=== PATIENT | female | born 1995 | race Caucasian/White ===

== ENCOUNTER 2021-05-26 22:03 | Emergency (ER) | payer BC, OTHER ==
[~2021-05-26] VITALS: Ht 160 cm; Wt 57.2 kg
[2021-05-26] MEDS ORDERED: KETOROLAC 30 MG/1 ML ONE (22:28)
[2021-05-26] MEDS ORDERED: KETOROLAC 30 MG/1 ML IM ONE (22:30)
[2021-05-26 22:44] LABS: MEAN CORPUSCULAR HEMOGLOBIN 31.4 pg (27.0-34.8); MEAN CORPUSCULAR HGB CONC 34.7 g/dL (32.4-35.8); MEAN PLATELET VOLUME 8.1 fL (7.4-10.4); PLATELET COUNT 231 x10^3/uL (130-400); RED BLOOD COUNT 4.16 x10^6/uL (3.82-5.3); RED CELL DISTRIBUTION WIDTH 12.8 % (9.6-15.2)
[2021-05-26 22:54] LABS: ANION GAP 9 mmol/L (5-15); CALCIUM 9.1 mg/dL (8.5-10.1); CHLORIDE 104 mmol/L (98-107); CREATININE 0.85 mg/dL (0.55-1.02)
--- NOTE | 2021-05-26 23:04 | NUR ---
US at bedside. Patient to provide urine after US.
[2021-05-26 23:11] LABS: BAND#(MANUAL) 0.84 x10^3/uL; BANDS%(MANUAL) 10 % (0-7); EOS#(MANUAL) 0.08 x10^3/uL (0.0-0.4); EOS% (MANUAL) 1 % (1-7); LYMPH#(MANUAL) 1.43 x10^3/uL (1-3.4); LYMPHS% (MANUAL) 17 % (22-44); MONOS#(MANUAL) 0.42 x10^3/uL (0.3-2.7); MONOS% (MANUAL) 5 % (2-9); SEG#(MANUAL) 5.63 x10^3/uL (1.8-6.8); SEGS% (MANUAL) 67 % (42-75)
[2021-05-26 23:13] LABS: <PLATELET ESTIMATE> ADEQUATE; <PLT MORPHOLOGY> NORMAL PLT MORPH; <RBC MORPHOLOGY> NORMAL
[2021-05-26 23:31] VITALS: BP 122/62
[2021-05-26 23:51] LABS: MICROSCOPIC INDICATED
--- NOTE | 2021-05-27 00:52 | NUR ---
pt educated on dc instructions, verbalized undertsanding. ambulatory to dc desk with steady gait.
== END 2021-05-27 00:55 | disposition home or self-care (01) ==
LOC: ED 22:33
DX: R10.31 Right lower quadrant pain (principal); R11.2 Nausea with vomiting, unspecified
CPT/HCPCS: 36415; 76830; 80048; 81001; 84703; 85025; 96372; 99284; J1885